=== PATIENT | female | born 1955 | race Caucasian/White ===

== ENCOUNTER → 2020-01-12 11:48 | Outpatient (CLI) | payer BC, SELFPAY ==
--- NOTE | ~2020-01-12 | MM_ITS ---
EXAMINATION: MM screening aria BI w ivonne HISTORY: Screening mammogram, family history of breast cancer in her mother. TECHNIQUE: Craniocaudal and mediolateral oblique 3-D tomosynthesis images were obtained and synthetic 2-D images were generated. CAD analysis was submitted and interpreted. COMPARISON: 01/09/2019, 01/06/2018, 01/04/2017 BREAST PARENCHYMAL COMPOSITION: The breasts are heterogeneously dense, which may obscure small masses . FINDINGS: Scattered benign-appearing calcifications are present. There is no evidence of suspicious m ass, calcification, or architectural distortion to suggest malignancy in either breast. There has bee n no suspicious interval change. IMPRESSION: 1. No mammographic evidence of malignancy. 2. Recommend routine screening mammography in one year. BI-RADS Category 2: Benign finding(s). Reviewed, dictated and finalized at location A. PROGRAMMER
== END ==
PROVIDERS: Visit Provider Obstetrics & Gynecology
DX: Z12.31 Encounter for screening mammogram for malignant neoplasm of breast (principal)
CPT/HCPCS: 77063; 77067

== ENCOUNTER → 2021-01-22 13:53 | Outpatient (CLI) | payer BC, SELFPAY ==
--- NOTE | ~2021-01-22 | MM_ITS ---
EXAMINATION: MM screening aria BI w ivonne HISTORY: Screening mammogram TECHNIQUE: Craniocaudal and mediolateral oblique 3-D tomosynthesis images were obtained and synthetic 2-D images were generated. CAD analysis was submitted and interpreted. COMPARISON: 01/12/2020, 01/09/2019, 01/06/2018 bilateral screening mammogram examinations BREAST PARENCHYMAL COMPOSITION: The breasts are heterogeneously dense, which may obscure small masses . FINDINGS: There is no evidence of suspicious mass, calcification, or architectural distortion to sugg est malignancy in either breast. There has been no suspicious interval change. IMPRESSION: 1. No mammographic evidence of malignancy. 2. Recommend routine screening mammography in one year. BI-RADS Category 1: Negative Reviewed, dictated and finalized at location A. ING CLERK
== END ==
PROVIDERS: PCP Family Medicine; Visit Provider Family Medicine
DX: Z12.31 Encounter for screening mammogram for malignant neoplasm of breast (principal)
CPT/HCPCS: 77063; 77067

== ENCOUNTER → 2022-01-23 11:30 | Outpatient (CLI) | payer BC, SELFPAY ==
--- NOTE | ~2022-01-23 | MM_ITS ---
EXAMINATION: MM screening aria BI w ivonne HISTORY: Screening mammogram, family history of breast cancer in her mother. TECHNIQUE: Craniocaudal and mediolateral oblique 3-D tomosynthesis images were obtained and synthetic 2-D images were generated. CAD analysis was submitted and interpreted. COMPARISON: 01/22/2021, 01/12/2020, 01/09/2019 BREAST PARENCHYMAL COMPOSITION: The breasts are heterogeneously dense, which may obscure small masses . FINDINGS: Scattered benign-appearing calcifications are present. No suspicious mass, calcification, o r architectural distortion are identified in either breast to suggest malignancy. There has been no s uspicious interval change. IMPRESSION: 1. No mammographic evidence of malignancy. 2. Recommend routine screening mammography in one year. BI-RADS Category 2: Benign finding(s). Reviewed, dictated and finalized at location A. E THINNER
== END ==
PROVIDERS: PCP Family Medicine; Visit Provider Family Medicine
DX: Z12.31 Encounter for screening mammogram for malignant neoplasm of breast (principal)
CPT/HCPCS: 77063; 77067

== ENCOUNTER 2022-05-11 02:15 | Day surgery (SDC) | payer MEDICARE, OTHER, SELFPAY ==
[2022-05-07 09:19] VITALS: BMI 27.1
[2022-05-11 12:17] VITALS: BP 144/63; PULSE 95; RESP 16; TEMP 36.3; O2SAT 100; BMI 27.4
--- NOTE | 2022-05-11 12:24 | PM.HPGS ---
History of Present Illness History of Present Illness Consent: Risks, benefits, and alternatives have been discussed and questions answered. Patient agrees to proceed with procedure. Chief complaint: hx colon polyps Narrative: Sue Olivera is a 67 year old female Presents for screening colonoscopy. Patient's current weight appetite are normal. Patient denies abdominal pain. She has had no bleeding. Family history noncontributory. Patient has previously had colon polyps in several occasions. Most recent colonoscopy 2018. Review of Systems Review of Systems: Review of systems noncontributory. [facility] Past Medical History Medical History (Updated 05/11/22 @ 12:25 by Ilan Benson MD) Dysphagia, unspecified Essential (primary) hypertension Generalized anxiety disorder History of stroke without residual deficits Irritable bowel syndrome with diarrhea Obstructive sleep apnea (adult) (pediatric) Personal history of colonic polyps Pure hypercholesterolemia, unspecified Family History Family History Father Neuropathy Social History Social History Smoking packs per day: 0.5 Smoking cigarettes per day: 10.0 Years smoked: 10 Smoking pack-years: 5.00 Smoking status: Former smoker Tobacco type: cigarettes Second hand tobacco smoke exposure: No Alcohol intake: current Drinks per week: 14 Alcohol use details: MIXED DRINKS Substance use: current Substance use type: marijuana Other substance usage details: SMOKES A COUPLE HITS A DAY Lack of Transportation: No Lack of Food: Never True Current Housing: I Have Housing Concerned About Future Housing: No Difficulty Paying Gas/Electric Bills: No Difficulty Paying for Meds: No Currently Unemployed: No Difficulty w/ Childcare or Family Care: No Living arrangements: with family Occupation/Education: retired Gender identity (if verbalized by the patient): Female Sexual Orientation (if Verbalized by the Patient): Straight or Heterosexual Spiritual care concerns: No Meds Home Medications and Allergies Home Medications Medication Instructions Recorded Confirmed Type aspirin 81 mg tablet,delayed 81 mg PO DAILY 04/01/22 05/11/22 History release (Adult Low Dose Aspirin) atorvastatin 80 mg tablet 80 mg PO DAILY 04/01/22 05/11/22 History escitalopram oxalate 10 mg tablet 10 mg PO DAILY 04/01/22 05/11/22 History losartan 50 mg tablet 50 mg PO DAILY 04/01/22 05/11/22 History Prevoitalize Prebiotic 2 cap PO HS 05/07/22 05/11/22 History Provoitalize Probiotic 2 cap PO DAILY 05/07/22 05/11/22 History Allergies Allergy/AdvReac Type Severity Reaction Status Date / Time No Known Allergies Allergy Verified 05/11/22 12:15 Vital Signs Vital Signs - 24 hr 05/11/22 12:17 Temperature 97.4 F L Pulse Rate 95 Respiratory Rate 16 Blood Pressure 144/63 H Pulse Oximetry 100 Oxygen Delivery Room Air Exam Narrative: Physical exam reveals patient to be alert. Vital signs stable. HEENT exam is unremarkable. Patient anicteric. Lungs are clear to auscultation and percussion. Heart is without murmur or extra sounds. Abdomen bowel sounds present soft nontender with no organomegaly. Digital external rectal exam normal. Assessment and Plan Assessment and plan (1) History of colon polyps: Code(s): Z86.010 - Personal history of colonic polyps Status: Acute Assessment and Plan: Patient presents for screening colonoscopy. She has had a history of colon polyps in the past. Further recommendations may be given after endoscopy.
[2022-05-11] MEDS: LACTATED RINGERS 1,000 ML 150 ML IV CONT (12:32)
--- NOTE | 2022-05-11 12:47 | WPDANESEPPF ---
Anes - Initial Pre Proc Eval Procedure: Operation Date: 05/11/22 13:00 Proposed Procedures p Colonoscopy - Ilan Bensno MD Date/Time: 05/11/22 12:47 Surgeon: Ilan Benson MD Pre Op Diagnosis: hx colon polyps Patient Data Age: 67 Gender: F Height: 1.6 m Weight: 70.3 kg Last Vital Signs Temp 97.4 F L 05/11/22 12:17 Pulse 95 05/11/22 12:17 Resp 16 05/11/22 12:17 BP 144/63 H 05/11/22 12:17 Pulse Ox 100 05/11/22 12:17 O2 Del Method Room Air 05/11/22 12:17 Allergies Allergy/AdvReac Type Severity Reaction Status Date / Time No Known Allergies Allergy Verified 05/11/22 12:15 Home Medications Medication Instructions Recorded Confirmed Type aspirin 81 mg tablet,delayed 81 mg PO DAILY 04/01/22 05/11/22 History release (Adult Low Dose Aspirin) atorvastatin 80 mg tablet 80 mg PO DAILY 04/01/22 05/11/22 History escitalopram oxalate 10 mg tablet 10 mg PO DAILY 04/01/22 05/11/22 History losartan 50 mg tablet 50 mg PO DAILY 04/01/22 05/11/22 History Prevoitalize Prebiotic 2 cap PO HS 05/07/22 05/11/22 History Provoitalize Probiotic 2 cap PO DAILY 05/07/22 05/11/22 History Patient hx anesthesia problems: none Family hx anesthesia problems: none Results Review: All pre-operative results and documents have been reviewed as part of the pre-operative evaluation. [facility] Past Medical History Medical History (Updated 05/11/22 @ 12:25 by Ilan Benson MD) Dysphagia, unspecified Essential (primary) hypertension Generalized anxiety disorder History of stroke without residual deficits Irritable bowel syndrome with diarrhea Obstructive sleep apnea (adult) (pediatric) Personal history of colonic polyps Pure hypercholesterolemia, unspecified Family History Family History Father Neuropathy Social History Social History Smoking packs per day: 0.5 Smoking cigarettes per day: 10.0 Years smoked: 10 Smoking pack-years: 5.00 Smoking status: Former smoker Tobacco type: cigarettes Second hand tobacco smoke exposure: No Alcohol intake: current Drinks per week: 14 Alcohol use details: MIXED DRINKS Substance use: current Substance use type: marijuana Other substance usage details: SMOKES A COUPLE HITS A DAY Lack of Transportation: No Lack of Food: Never True Current Housing: I Have Housing Concerned About Future Housing: No Difficulty Paying Gas/Electric Bills: No Difficulty Paying for Meds: No Currently Unemployed: No Difficulty w/ Childcare or Family Care: No Living arrangements: with family Occupation/Education: retired Gender identity (if verbalized by the patient): Female Sexual Orientation (if Verbalized by the Patient): Straight or Heterosexual Spiritual care concerns: No Anes - Eval Final PreProcedure Day of Procedure 05/11/22 12:47 Patient weight: normal Heart: regular rate and rhythm Lungs: clear to auscultation Airway: Mallampati scale class II Neurological: alert and oriented Last oral intake: >/= 8 hours ASA classification: III Emergent: no Anesthetic plan: proceed Anesthesia type and monitoring: general GIVS and standard monitoring Results Review: All pre-operative results and documents have been reviewed as part of the pre-operative evaluation. Informed Consent: The patient's anesthetic plan and its attendant risks and benefits were discussed with the patient/family/POA. Questions were solicited and answers provided to the satisfaction of the patient/family/POA.
[2022-05-11 13:19] VITALS: BP 110/48; PULSE 63; RESP 17; O2SAT 100
[2022-05-11 13:29] VITALS: BP 125/72; PULSE 61; RESP 15; O2SAT 100
[2022-05-11 13:39] VITALS: PULSE 68; RESP 22; O2SAT 100
== END 2022-05-11 13:46 | disposition home or self-care (01) ==
PROVIDERS: PCP Family Medicine; Visit Provider Internal Medicine Gastroenterology
PROC: 0DJD8ZZ Inspection of Lower Intestinal Tract, Via Natural or Artificial Opening Endoscopic (ICD-10-PCS; CPT 45378; principal; 2022-05-11 13:00)
DX: Z12.11 Encounter for screening for malignant neoplasm of colon (principal); K57.30 Diverticulosis of large intestine without perforation or abscess without bleeding; Z86.010 Personal history of colon polyps; I10 Essential (primary) hypertension; E78.00 Pure hypercholesterolemia, unspecified; G47.33 Obstructive sleep apnea (adult) (pediatric); K58.0 Irritable bowel syndrome with diarrhea; F41.1 Generalized anxiety disorder; Z86.73 Personal history of transient ischemic attack (TIA), and cerebral infarction without residual deficits; Z79.82 Long term (current) use of aspirin; Z87.891 Personal history of nicotine dependence; F12.90 Cannabis use, unspecified, uncomplicated
CPT/HCPCS: G0105; J2704; J7120

== ENCOUNTER → 2023-01-26 11:26 | Outpatient (CLI) | payer MEDICARE, OTHER, SELFPAY ==
--- NOTE | ~2023-01-26 | MM_ITS ---
EXAMINATION: MM screening aria BI w ivonne HISTORY: Screening mammogram, family history of breast cancer in her mother. TECHNIQUE: Craniocaudal and mediolateral oblique 3-D tomosynthesis images were obtained and synthetic 2-D images were generated. CAD analysis was submitted and interpreted. COMPARISON: 01/23/2022, 01/22/2021, 01/12/2020 BREAST PARENCHYMAL COMPOSITION: The breasts are heterogeneously dense, which may obscure small masses . FINDINGS: Scattered benign-appearing calcifications are present. No suspicious mass, calcification, o r architectural distortion are identified in either breast to suggest malignancy. There has been no s uspicious interval change. IMPRESSION: 1. No mammographic evidence of malignancy. 2. Recommend routine screening mammography in one year. BI-RADS Category 2: Benign finding(s). Reviewed, dictated and finalized at location A. OR ANALYST DEVELOPER
== END ==
PROVIDERS: PCP Family Medicine; Visit Provider Family Medicine
DX: Z12.31 Encounter for screening mammogram for malignant neoplasm of breast (principal)
CPT/HCPCS: 77063; 77067

== ENCOUNTER 2023-10-26 01:22 | Day surgery (SDC) | payer MEDICARE, OTHER, SELFPAY ==
[2023-10-05 13:53] VITALS: BMI 27.7
[2023-10-26 11:51] VITALS: BP 142/48; PULSE 48; RESP 18; TEMP 36.2; O2SAT 100
[2023-10-26] MEDS: LACTATED RINGERS 1,000 ML 150 ML IV CONT (12:05)
--- NOTE | 2023-10-26 12:07 | SUR.PREOP ---
DR HARRIS NOTIFIED OF ALL PT VITAL SIGNS, HE WILL SEE PT, NO NEW ORDERS.
--- NOTE | 2023-10-26 12:13 | WPDANESEPPF ---
Anes - Initial Pre Proc Eval Procedure: Operation Date: 10/26/23 13:00 Proposed Procedures p Esophagogastroduodenoscopy - Rick Cisneros MD Date/Time: 10/26/23 12:13 Surgeon: Rick Cisneros MD Pre Op Diagnosis: Dysphagia Patient Data Age: 68 Gender: F Height: 1.6 m Weight: 71.6 kg Last Vital Signs Temp 97.1 F L 10/26/23 11:51 Pulse 48 L 10/26/23 11:51 Resp 18 10/26/23 11:51 BP 142/48 H 10/26/23 11:51 Pulse Ox 100 10/26/23 11:51 O2 Del Method Room Air 10/26/23 11:51 Allergies Allergy/AdvReac Type Severity Reaction Status Date / Time No Known Allergies Allergy Verified 10/26/23 11:48 Home Medications Medication Instructions Recorded Confirmed Type aspirin 81 mg tablet,delayed 81 mg PO DAILY 04/01/22 10/26/23 History release (Adult Low Dose Aspirin) escitalopram oxalate 10 mg tablet 10 mg PO DAILY #90 tabs 07/17/22 10/26/23 Rx atorvastatin 80 mg tablet 80 mg PO DAILY #90 tabs 08/15/23 10/26/23 Rx losartan 50 mg tablet 50 mg PO DAILY #90 tabs 09/20/23 10/26/23 Rx Patient hx anesthesia problems: none Family hx anesthesia problems: none Results Review: All pre-operative results and documents have been reviewed as part of the pre-operative evaluation. [facility] Past Medical History Medical History Dysphagia, unspecified Essential (primary) hypertension Generalized anxiety disorder History of stroke without residual deficits Irritable bowel syndrome with diarrhea Obstructive sleep apnea (adult) (pediatric) Personal history of colonic polyps Pure hypercholesterolemia, unspecified Family History Family History Father Neuropathy Social History Social History (Updated 10/23/22 @ 11:03 by Elle Georges MA) Smoking packs per day: 0.5 Smoking cigarettes per day: 10.0 Years smoked: 7 Smoking pack-years: 3.50 Smoking status: Former smoker Tobacco type: cigarettes Second hand tobacco smoke exposure: No Alcohol intake: current Drinks per week: 14 Alcohol use details: 2 drinks at night occasionally Substance use: current Substance use type: marijuana Other substance usage details: gummies Lack of Transportation: No Lack of Food: Never True Current Housing: I Have Housing Concerned About Future Housing: No Difficulty Paying Gas/Electric Bills: No Difficulty Paying for Meds: No Currently Unemployed: No Education: High School Diploma/GED Difficulty w/ Childcare or Family Care: No Living arrangements: with family Occupation/Education: retired Gender identity (if verbalized by the patient): Female Sexual Orientation (if Verbalized by the Patient): Straight or Heterosexual Spiritual care concerns: No Anes - Eval Final PreProcedure Day of Procedure 10/26/23 12:13 Patient weight: normal Heart: regular rate and rhythm Lungs: clear to auscultation Airway: Mallampati scale class II Neurological: alert and oriented Last oral intake: >/= 8 hours ASA classification: III Emergent: no Anesthetic plan: proceed Anesthesia type and monitoring: general GIVS and standard monitoring Results Review: All pre-operative results and documents have been reviewed as part of the pre-operative evaluation. Informed Consent: The patient's anesthetic plan and its attendant risks and benefits were discussed with the patient/family/POA. Questions were solicited and answers provided to the satisfaction of the patient/family/POA.
--- NOTE | 2023-10-26 12:58 | PM.HPGS ---
History of Present Illness History of Present Illness Consent: Risks, benefits, and alternatives have been discussed and questions answered. Patient agrees to proceed with procedure. Chief complaint: Dysphagia Narrative: Sue Olivera is a 68 year old female here for first EGD, for last 2 years intermittent sensation of choking after swallowing Review of Systems Review of Systems: All systems reviewed & are unremarkable except as noted in HPI and below PMFSH Past Medical History Medical History (Updated 10/26/23 @ 13:02 by Rick Cisneros MD) Choking Dysphagia, unspecified Essential (primary) hypertension Generalized anxiety disorder History of stroke without residual deficits Irritable bowel syndrome with diarrhea Obstructive sleep apnea (adult) (pediatric) Personal history of colonic polyps Pure hypercholesterolemia, unspecified Family History Family History Father Neuropathy Social History Social History (Updated 10/23/22 @ 11:03 by Elle Georges MA) Smoking packs per day: 0.5 Smoking cigarettes per day: 10.0 Years smoked: 7 Smoking pack-years: 3.50 Smoking status: Former smoker Tobacco type: cigarettes Second hand tobacco smoke exposure: No Alcohol intake: current Drinks per week: 14 Alcohol use details: 2 drinks at night occasionally Substance use: current Substance use type: marijuana Other substance usage details: gummies Lack of Transportation: No Lack of Food: Never True Current Housing: I Have Housing Concerned About Future Housing: No Difficulty Paying Gas/Electric Bills: No Difficulty Paying for Meds: No Currently Unemployed: No Education: High School Diploma/GED Difficulty w/ Childcare or Family Care: No Living arrangements: with family Occupation/Education: retired Gender identity (if verbalized by the patient): Female Sexual Orientation (if Verbalized by the Patient): Straight or Heterosexual Spiritual care concerns: No Meds Home Medications and Allergies Home Medications Medication Instructions Recorded Confirmed Type aspirin 81 mg tablet,delayed 81 mg PO DAILY 04/01/22 10/26/23 History release (Adult Low Dose Aspirin) escitalopram oxalate 10 mg tablet 10 mg PO DAILY #90 tabs 07/17/22 10/26/23 Rx atorvastatin 80 mg tablet 80 mg PO DAILY #90 tabs 08/15/23 10/26/23 Rx losartan 50 mg tablet 50 mg PO DAILY #90 tabs 09/20/23 10/26/23 Rx Allergies Allergy/AdvReac Type Severity Reaction Status Date / Time No Known Allergies Allergy Verified 10/26/23 11:48 Vital Signs Vital Signs - 24 hr 10/26/23 11:51 Temperature 97.1 F L Pulse Rate 48 L Respiratory Rate 18 Blood Pressure 142/48 H Pulse Oximetry 100 Oxygen Delivery Room Air Exam Const: General: comfortable and no acute distress HENMT: Face/Nose/Sinus: Normal nares present Eyes: General: appearance normal, both eyes and all related structures Neck: Neck: no JVD Resp: Auscultation: clear to auscultation bilaterally Cardio: Rate: regular rate Rhythm: regular rhythm GI: Inspection: non-distended GI Palp: Yes Soft to palpation Skin: General skin exam: normal color Neuro: General: gait normal Speech: normal speech Extrem: General: normal to inspection Psych: Mental Status: mental status grossly normal Assessment and Plan Assessment and plan (1) Choking: Code(s): T17.308A - Unspecified foreign body in larynx causing other injury, initial encounter Status: Acute Assessment and Plan: will assess with egd
[2023-10-26 13:11] VITALS: BP 101/48; PULSE 45; RESP 18; O2SAT 100
[2023-10-26 13:21] VITALS: BP 125/95; PULSE 49; RESP 19; O2SAT 100
[2023-10-26 13:31] VITALS: BP 130/56; PULSE 42; RESP 14; O2SAT 100
== END 2023-10-26 13:37 | disposition home or self-care (01) ==
PROVIDERS: PCP Internal Medicine; Visit Provider Internal Medicine Gastroenterology
PROC: 0DJ08ZZ Inspection of Upper Intestinal Tract, Via Natural or Artificial Opening Endoscopic (ICD-10-PCS; CPT 43235; principal; 2023-10-26 13:00)
DX: R09.89 Other specified symptoms and signs involving the circulatory and respiratory systems (principal); I10 Essential (primary) hypertension; G47.33 Obstructive sleep apnea (adult) (pediatric); E78.00 Pure hypercholesterolemia, unspecified; F41.1 Generalized anxiety disorder; Z86.73 Personal history of transient ischemic attack (TIA), and cerebral infarction without residual deficits; Z87.891 Personal history of nicotine dependence; Z79.82 Long term (current) use of aspirin; F12.90 Cannabis use, unspecified, uncomplicated
CPT/HCPCS: 43239; 88305; J2704; J7120

== ENCOUNTER 2024-02-18 16:53 | Emergency (ER) | payer MEDICARE, OTHER, SELFPAY ==
[2024-02-18 17:05] VITALS: BP 144/57; PULSE 52; RESP 16; TEMP 36.2; O2SAT 100
--- NOTE | 2024-02-18 17:51 | ED.EAR ---
HPI - Ear Problem General Chief complaint: Ear Stated complaint: Thinks tip of hearing aid stuck in ear Time Seen by Provider: 02/18/24 17:51 Source: patient, RN notes reviewed and old records reviewed Mode of arrival: ambulatory Limitations: no limitations History of Present Illness HPI Narrative: 68-year-old female presents to the [facility] with concerns of part of her hearing aid stuck in her left ear. States that she was taking her hearing aids out when the rubber piece was missing. Denies any pain. Patient states it happened approximately 1 hour prior to arrive Related Data Home Medications ?Medication ?Instructions ?Recorded ?Confirmed ?Last Taken ?Type aspirin 81 mg tablet,delayed 81 mg PO DAILY 04/01/22 10/26/23 10/25/23 History release (Adult Low Dose Aspirin) Allergies Allergy/AdvReac Type Severity Reaction Status Date / Time No Known Allergies Allergy Verified 02/18/24 17:52 Review of Systems Review of Systems: All systems reviewed & are unremarkable except as noted in HPI and below Constitutional: Constitutional: Reports no additional constitutional complaints ENT: Reports as per HPI Cardiovascular: Cardiovascular: Reports no additional cardiovascular complaints, Denies chest pain and Denies dyspnea Respiratory: Respiratory: Reports no additional respiratory complaints, Denies chest congestion, Denies cough and Denies dyspnea Musculoskeletal: Musculoskeletal: Reports no additional musculoskeletal complaints Integumentary/Breasts: Skin/Breast: Reports system reviewed and no additional complaints, except as docu PMFSH Past Medical History Medical History Choking History of stroke without residual deficits Personal history of colonic polyps Obstructive sleep apnea (adult) (pediatric) Generalized anxiety disorder Irritable bowel syndrome with diarrhea Dysphagia, unspecified Pure hypercholesterolemia, unspecified Essential (primary) hypertension Family History Family History Father Neuropathy Social History Social History Smoking packs per day: 0.5 Smoking cigarettes per day: 10.0 Years smoked: 7 Smoking pack-years: 3.50 Smoking status: Former smoker Tobacco type: cigarettes Second hand tobacco smoke exposure: No Alcohol intake: current Drinks per week: 14 Alcohol use details: 2 drinks at night occasionally Substance use: current Substance use type: marijuana Other substance usage details: gumbaljeet Lack of Transportation: No Lack of Food: Never True Current Housing: I Have Housing Concerned About Future Housing: No Difficulty Paying Gas/Electric Bills: No Difficulty Paying for Meds: No Currently Unemployed: No Education: High School Diploma/GED Difficulty w/ Childcare or Family Care: No Living arrangements: with family Occupation/Education: retired Gender identity (if verbalized by the patient): Female Sexual Orientation (if Verbalized by the Patient): Straight or Heterosexual Spiritual care concerns: No Comments At the time of my signature, I reviewed and agree with the nursing past medical, surgical, social, and family history. There is no relevant family history pertinent to the patient complaint. Exam Const: General: cooperative, healthy appearing, comfortable, no acute distress, well developed, alert and well nourished Nutritional Appearance: well nourished Orientation/consciousness: patient oriented x3 Limitations: no limitations HENMT: Head: normal to inspection Ears: external ears normal and Abnormal EAC present foreign body on the left Face/Nose/Sinus: normal facial exam and face symmetric Face and sinus: normal facial exam and face symmetric Eyes: General: appearance normal, both eyes and all related structures Neck: Neck: normal visual inspection, full ROM, no lymphadenopathy and no meningeal signs Chest: Chest palpation & inspection: normal inspection of the chest Resp: Effort & Inspection: normal respiratory effort and able to speak in complete sentences Cardio: Rate: regular rate Skin: General skin exam: normal color and no rashes or lesions noted Neuro: General: patient oriented x3, gait normal, moves all extremities and no meningeal signs Cognition (Neuro): normal cognition Speech: normal speech Gait exam (Neuro): Normal gait present Extrem: General: normal to inspection, full ROM, capillary refill normal and normal gait Psych: Appearance: grossly normal and well kempt Mental Status: mental status grossly normal Speech and movement: Normal speech and movement present and Clear speech present Affect: normal affect Attitude: cooperative Course Course Level of Care: Express Care Visit Vital Signs Vital signs: Vital Signs Temperature 97.1 F L 02/18/24 17:05 Pulse Rate 52 L 02/18/24 17:05 Respiratory Rate 16 02/18/24 17:05 Blood Pressure 144/57 H 02/18/24 17:05 Pulse Oximetry 100 02/18/24 17:05 Oxygen Delivery Room Air 02/18/24 17:05 Temperature 97.1 F L 02/18/24 17:05 Pulse Rate 52 L 02/18/24 17:05 Respiratory Rate 16 02/18/24 17:05 Blood Pressure 144/57 H 02/18/24 17:05 Pulse Oximetry 100 02/18/24 17:05 Oxygen Delivery Room Air 02/18/24 17:05 Reviewed Procedures FB Removal Ear Foreign Body #1: Foreign Body Removal Date: 02/18/24 Foreign Body Removal Time: 17:55 Location: ear canal (L) Foreign Body Suspected: other (Part of hearing aid) TM intact pre-procedure: yes Foreign Body Removed: yes Foreign Body Removal Technique: forceps (Alligator forceps) Tympanic Membrane Intact Post Procedure: Yes Patient Tolerated Procedure: well Medical Decision Making MDM Narrative Medical decision making narrative: Patient sitting comfortably in exam room. Nontoxic, vitals stable. Patient in no acute distress Patient presents for possible foreign body left ear. Small grade foreign body noted on exam. Was able to remove with alligator forceps without difficulty. Patient tolerated well Discharge instructions reviewed with patient, as well as provided in writing per nursing staff. The instructions also include specific and strict return/GO TO THE ER as well as f/u information. All questions have been answered, and the patient deny any further questions with discharge and discharge plan. Some parts of this dictation were generated by voice recognition software and may contain typographical and/or grammatical inaccuracies. Differential Diagnosis Differential Diagnosis: Earache, foreign body Medical Records Medical records reviewed: Yes I reviewed the external patient's medical records. Vital Signs Vital Signs: Vital Signs Temperature 97.1 F L 02/18/24 17:05 Pulse Rate 52 L 02/18/24 17:05 Respiratory Rate 16 02/18/24 17:05 Blood Pressure 144/57 H 02/18/24 17:05 Pulse Oximetry 100 02/18/24 17:05 Oxygen Delivery Room Air 02/18/24 17:05 Temperature 97.1 F L 02/18/24 17:05 Pulse Rate 52 L 02/18/24 17:05 Respiratory Rate 16 02/18/24 17:05 Blood Pressure 144/57 H 02/18/24 17:05 Pulse Oximetry 100 02/18/24 17:05 Oxygen Delivery Room Air 02/18/24 17:05 Reviewed Lab Data Lab results reviewed: Yes I reviewed the patient's lab results. Labs: Reviewed Critical Care Time Critical Care Time Critical Care Time: No Discharge Plan Discharge Clinical Impression: Foreign body in left ear Qualifiers: Encounter type: initial encounter Qualified Code(s): T16.2XXA - Foreign body in left ear, initial encounter Patient Disposition: Home, Self-Care Condition: Stable Instructions: Antibiotic Form, Ear Foreign Body (ED) Additional Instructions: Today your blood pressure was 144/57. Please follow-up with primary care provider for a recheck of your blood pressure within the next 2 weeks Patient Language: Iranian Prescriptions: No Action aspirin [Adult Low Dose Aspirin] 81 mg tablet,delayed release (DR/EC) 81 mg PO DAILY escitalopram oxalate 10 mg tablet 10 mg PO DAILY Qty: 90 1RF atorvastatin 80 mg tablet 80 mg PO DAILY Qty: 90 1RF losartan 50 mg tablet 50 mg PO DAILY Qty: 90 1RF Follow-up/Referrals: UNKNOWN,DOCTOR [Primary Care Provider] - Time of Disposition: 18:01
== END 2024-02-18 18:05 | disposition home or self-care (01) ==
PROVIDERS: Emergency Provider Nurse Practitioner
DX: T16.2XXA Foreign body in left ear, initial encounter (principal); W44.G1XA Audio device entering into or through a natural orifice, initial encounter; Z87.891 Personal history of nicotine dependence; F12.90 Cannabis use, unspecified, uncomplicated; I10 Essential (primary) hypertension; E78.00 Pure hypercholesterolemia, unspecified; I69.30 Unspecified sequelae of cerebral infarction; Z79.82 Long term (current) use of aspirin
CPT/HCPCS: 69200; 99212; G0463